=== PATIENT | female | born 1980 | race Two or more races ===

== ENCOUNTER 2024-11-19 05:19 | Emergency (ER) | payer BC, OTHER, SELFPAY ==
--- NOTE | 2024-11-19 | XR_ITS ---
Examination: MRI pelvis with intravenous contrast. MRI pelvis without intravenous contrast. Date and time of exam: November 19, 2024 1540 hrs. Indications: Pelvic pain and distention this week, right ovarian cystic mass left ovarian hypoechoic solid mass on pelvic sonogram today Technique: Multiple axial, sagittal and coronal sections of the pelvis obtained. Transverse images, TR 6020, TE 107. T1 weighted transverse images, TR 582, TE 9.5. T2-weighted sagittal images, TR 4000, TE 105. T2-weighted sagittal images, TR 4000, TE 5. Coronal images, TR 4210, TE 107. Axial and coronal images are obtained post 20 cc intravenous injection, gadolinium. Findings: Uterus 9 x 5 x 5 cm No discrete uterine mass Complex right ovarian cystic mass 3.8 x 3.7 cm Multiple left ovarian cysts, the largest 17 mm complex slightly proteinaceous cyst No pelvic lymphadenopathy No free fluid in the pelvis Impression: No discrete uterine mass Complex right ovarian cystic mass 3.8 x 3.7 cm Left ovarian follicular cysts 17 mm complex probable left ovarian proteinaceous cyst rather than ovarian solid tumor Recommend repeat pelvic sonography with the radiologist in attendance
[2024-11-19 05:19] VITALS: BMI 39.9
[2024-11-19 05:25] VITALS: BP 108/74; PULSE 81; RESP 19; TEMP 36.7; O2SAT 99
--- NOTE | 2024-11-19 05:47 | PD.EDRME ---
Rapid Medical Screening Exam RME Arrival date/time: 11/19/24 05:19 43-year-old female past medical history of recent H. pylori treatment presents emergency department complaining of abdominal pain and bloating since this past October. Chief Complaint: Abdominal Pain Time Seen by Provider: 11/19/24 05:30 Vital signs: Vital Signs Temperature 98.1 F 11/19/24 05:25 Pulse Rate 81 11/19/24 05:25 Respiratory Rate 19 11/19/24 05:25 Blood Pressure 108/74 11/19/24 05:25 Pulse Oximetry (%) 99 11/19/24 05:25 Oxygen Delivery Method Room Air 11/19/24 05:25 Vital signs reviewed by provider: Yes
[2024-11-19] MEDS: LIDOCAINE VISCOUS 2% 15 ML UDC PO ×2 (05:58→14:36)
[2024-11-19] MEDS: MG HYD/AL HYD/SIME (Maalox Reg) SUSP 30 ML UDC PO ×2 (05:58→14:36)
[2024-11-19] MEDS: FAMOTIDINE 20 MG TABLET 40 MG PO (05:58)
[2024-11-19 06:16] LABS: Collection Type, Urine Clean Catch
[2024-11-19 07:01] LABS: Bilirubin,Urine Negative (Negative); Blood,Urine 2+ (Negative); Clarity,Urine Clear (Clear/Hazy); Color,Urine Yellow (Lt Yel-Yel); Culture Indicated,Urine Not Indicated; Glucose, Urine Negative (Negative); Ketones,Urine 1+ (Negative); Leukocyte Esterase,Urine Positive (Negative); Nitrite,Urine Negative (Negative); Protein,Urine Trace (Neg - Trace); RBC,Urine 9 /hpf (0-3); Specific Gravity,Urine 1.036 (1.001-1.035); Squamous Epithelial Cell,Urine 5 /hpf (0-5); Urobilinogen,Urine Negative mg/dL (0.0-1.0); WBC,Urine 2 /hpf (0-5)
[2024-11-19 07:35] LABS: Basophils # (Auto) 0.1 Thou/mm3 (0.0-0.2); Basophils % (Auto) 1 % (0-2.5); Eosinophils # (Auto) 0.3 Thou/mm3 (0.0-0.5); Eosinophils % (Auto) 3 % (0-10); Hematocrit 38.1 % (36.0-46.0); Hemoglobin 12.7 g/dL (12.0-16.0); Immature Granulocytes % (Auto) 0 % (0-0); Immature Granulocytes Auto 0.04 Thou/mm3 (0.00-0.00); Lymphocytes # (Auto) 3.3 Thou/mm3 (1.0-4.8); Lymphocytes % (Auto) 30 % (10-50); Mean Corpuscular HGB Conc 33.3 g/dl (31.0-37.0); Mean Corpuscular Hemoglobin 28.5 pg (25.0-35.0); Mean Corpuscular Volume 85 fL (80-100); Monocytes # (Auto) 0.7 Thou/mm3 (0.0-0.8); Monocytes % (Auto) 7 % (0-12); Neutrophils # (Auto) 6.4 Thou/mm3 (1.8-7.7); Neutrophils % (Auto) 59 % (37-80); Nucleated Red Blood Cell % 0 /100 WBC (0); Platelet Count 295 Thou/mm3 (140-440); RDW Standard Deviation 42.4 fL (36.4-46.3); Red Blood Count 4.46 Miln/mm3 (4.00-5.20); White Blood Count 10.8 Thou/mm3 (3.6-11.0)
[2024-11-19 07:40] LABS: Alanine Aminotransferase 16 U/L (10-49); Albumin, Serum 4.1 gm/dL (3.5-5.0); Albumin/Globulin Ratio 1.4 (1.2-2.2); Alkaline Phosphatase 71 U/L (46-116); Anion Gap 9 (7-16); Aspartate Amino Transferase 18 U/L (0-34); BUN/Creatinine Ratio 20 Ratio (12-20); Bilirubin,Total 0.3 mg/dL (0.3-1.2); Blood Urea Nitrogen 12 mg/dL (9-23); Carbon Dioxide 27.4 mMol/L (20.0-31.0); Chloride 103 mMol/L (98-107); Creatinine (Component) 0.6 mg/dL (0.6-1.3); Estimated Creatinine Clearance 148.4 mL/min (>60); Glucose 116 mg/dL (74-106); Lipase 35 U/L (12-53); Osmolality,Calculated 278 (275-295); Sodium 139 mMol/L (136-145); Total Protein 7.1 gm/dL (5.7-8.2); eGFR > 60 See Note
--- NOTE | 2024-11-19 07:50 | PD.EDABDPN ---
ED Abdominal Pain RME/HPI General Chief Complaint: Abdominal Pain Stated complaint: ABD PAIN Time seen by provider: 11/19/24 05:30 Arrival date/time: 11/19/24 05:19 RME / HPI RME / HPI narrative: 11/19/24 05:19 43-year-old female past medical history of recent H. pylori treatment presents emergency department complaining of abdominal pain and bloating since this past October. Related Data Previous Rx's ?Medication ?Instructions ?Recorded ibuprofen 600 mg tablet 600 mg PO Q6H PRN pain #14 tabs 03/17/19 acetaminophen 300 mg-codeine 30 mg 1 tab PO Q4H PRN pain #20 tabs 10/24/21 tablet ibuprofen 800 mg tablet 800 mg PO TID PRN pain #30 tabs 10/24/21 ondansetron 4 mg disintegrating 4 mg PO Q6H PRN nausea and 10/24/21 tablet vomiting #10 tabs tamsulosin 0.4 mg capsule (Flomax) 0.4 mg PO QDAY #7 caps 10/24/21 ciprofloxacin HCl 500 mg tablet 500 mg PO BID #14 tabs 10/30/21 (Cipro) tamsulosin 0.4 mg capsule (Flomax) 0.4 mg PO QDAY #7 caps 10/30/21 naproxen 500 mg tablet (Naprosyn) 500 mg PO BID PRN pain #30 tabs 11/13/21 Allergies Allergy/AdvReac Type Severity Reaction Status Date / Time No Known Allergies Allergy Verified 11/12/21 22:47 Course Orders Category Date Time Status CBC Stat Lab 11/19/24 07:08 Completed CMP [Comprehensive Metabolic Panel] Stat Lab 11/19/24 07:08 Results HCG,Qualitative Serum Stat Lab 11/19/24 07:08 Results Lipase Stat Lab 11/19/24 07:08 Results Urinalysis, C/S if Indicated Stat Lab 11/19/24 06:00 Completed Famotidine [Pepcid] Med 11/19/24 05:46 Discontinued 40 mg PO X1 ONE Lidocaine 2% Viscous [Xylocaine 2% Viscous] Med 11/19/24 05:46 Discontinued 15 ml PO X1 ONE mg Hyd/Al Hyd/Aristeo Susp [Maalox Susp] Med 11/19/24 05:46 Discontinued 30 ml PO X1 ONE Vital Signs Vital signs: Vital Signs Temperature 98.1 F 11/19/24 05:25 Pulse Rate 81 11/19/24 05:25 Respiratory Rate 19 11/19/24 05:25 Blood Pressure 108/74 11/19/24 05:25 Pulse Oximetry (%) 99 11/19/24 05:25 Oxygen Delivery Method Room Air 11/19/24 05:25 Abdominal Pain MDM Medications / Prescriptions Medication administrations:: Medication Administration History Discontinued Medications Al Hydrox/Mg Hydrox/Simethicone (Mg Hyd/Al Hyd/Aristeo (Maalox Reg) Susp 30 Ml Udc) 30 ml PO X1 ONE Stop: 11/19/24 05:47 Last Admin: 11/19/24 05:58 Dose: 30 ml Documented By: CVL Famotidine (Famotidine 20 Mg Tablet) 40 mg PO X1 ONE Stop: 11/19/24 05:47 Last Admin: 11/19/24 05:58 Dose: 40 mg Documented By: CVL Lidocaine HCl (Lidocaine Viscous 2% 15 Ml Udc) 15 ml PO X1 ONE Stop: 11/19/24 05:47 Last Admin: 11/19/24 05:58 Dose: 15 ml Documented By: CVL Discharge Plan Prescriptions/Referrals Prescriptions/Med Rec: No Action ibuprofen 600 mg tablet 600 mg PO Q6H PRN (Reason: pain) Qty: 14 0RF ibuprofen 800 mg tablet 800 mg PO TID PRN (Reason: pain) Qty: 30 0RF acetaminophen-codeine 300-30 mg tablet 1 tab PO Q4H PRN (Reason: pain) Qty: 20 0RF ondansetron 4 mg tablet,disintegrating 4 mg PO Q6H PRN (Reason: nausea and vomiting) Qty: 10 0RF tamsulosin [Flomax] 0.4 mg capsule 0.4 mg PO QDAY Qty: 7 0RF ciprofloxacin HCl [Cipro] 500 mg tablet 500 mg PO BID Qty: 14 0RF tamsulosin [Flomax] 0.4 mg capsule 0.4 mg PO QDAY Qty: 7 0RF naproxen [Naprosyn] 500 mg tablet 500 mg PO BID PRN (Reason: pain) Qty: 30 0RF Referrals: Dirk Garcia MD [Primary Care Provider] - In 1 week Patient/Caregiver Discharge Instructions Print Language: Polish
--- NOTE | 2024-11-19 07:51 | XR_ITS ---
Examination: CT abdomen and pelvis without contrast. Coronal 3-D reconstructions. Sagittal 2-D reconstructions. Date and time of exam: November 19, 2024 0931 hrs. Indications: Generalized abdominal pain beginning 2 months ago CTDI: vol (mGy): 12.7 DLP: (mGycm): 758 Technique: Axial images of the abdomen have been obtained, 3 mm slice thickness Intravenous contrast material has not been administered. Low dose protocols were performed. One or more of the following dose reduction techniques were used; automated exposure control, adjustment of the mA and/or KV according to patient size, use of iterative reconstruction technique. Findings: No liver or splenic lesions Absent gallbladder No intrahepatic biliary tract dilatation No pancreatic mass or peripancreatic edema Normal adrenal glands No renal or ureteral calculi, no hydronephrosis Abdominal aorta normal size Normal appendix No bowel obstruction No diverticulitis Anteverted uterus Partially cystic partially solid anterior right pelvic mass axial image 188, measuring 4.8 x 4.2 cm Urinary bladder intact Impression: Normal appendix Partially cystic partially solid anterior right pelvic mass 4.8 x 4.2 cm, recommend follow-up transvaginal transabdominal pelvic sonography
[2024-11-19 07:54] LABS: HCG,Qualitative Serum Negative
[2024-11-19 09:58] LABS: HCG Qualitative,Urine Negative
--- NOTE | 2024-11-19 11:14 | XR_ITS ---
Examination: Pelvic ultrasound, transabdominal, complete Technique: Transabdominal ultrasound of the pelvis performed using grayscale imaging Date and time of exam: November 19, 2024 1203 hrs. Indications: Abdominal pelvic pain 2 months, 4.8 cm right pelvic cystic solid mass on CT scan of the pelvis today Findings: Uterus 10.1 x 5.2 x 6.5 cm Endometrial stripe 13 mm No bladder mass or intrauterine gestation Right ovary 5.2 cm arterial flow 3.5 x 2.8 x 3.7 cm cyst with septations Left ovary 4.6 cm arterial flow, 2.1 x 1.0 x 1.4 cm solid hyperechoic mass Impression: Right ovary complex cyst 3.5 x 2.8 x 3.7 cm Left ovarian hyperechoic solid mass 2.1 x 1.0 x 1.4 cm, differential would include endometrioma, early solid left ovarian tumor Recommend MRI pelvis follow-up pre and postcontrast
[2024-11-19 12:45] VITALS: BP 127/87; PULSE 78; RESP 18; TEMP 36.8; O2SAT 99
--- NOTE | 2024-11-19 12:46 | PD.EDRME ---
Rapid Medical Screening Exam RME Arrival date/time: 11/19/24 05:19 11/19/24 05:19 43-year-old female past medical history of recent H. pylori treatment presents emergency department complaining of abdominal pain and bloating since this past October. Chief Complaint: Abdominal Pain Time Seen by Provider: 11/19/24 05:30 Vital signs: Vital Signs Temperature 98.1 F 11/19/24 05:25 Pulse Rate 81 11/19/24 05:25 Respiratory Rate 19 11/19/24 05:25 Blood Pressure 108/74 11/19/24 05:25 Pulse Oximetry (%) 99 11/19/24 05:25 Oxygen Delivery Method Room Air 11/19/24 05:25 RME Narrative: 11/19/24 05:19 43-year-old female past medical history of recent H. pylori treatment presents emergency department complaining of abdominal pain and bloating since this past October.
--- NOTE | 2024-11-19 13:17 | EDNOTE_ITS ---
ED General RME/HPI General Chief complaint: Abdominal Pain Stated complaint: ABD PAIN Time Seen by Provider: 11/19/24 05:30 Arrival date/time: 11/19/24 05:19 CC: Epigastric pain HPI ongoing since October 2024, was diagnosed with H. pylori put on the medications the end of October which she completed with no change in the epigastric pain. Patient states pain is intermittent in nature worse when she goes to bed where she wakes up in the morning with a bloating sensation. Prior to 2024 no complaints similar to this last menstrual cycle was November 06. Patient is awake alert oriented nontoxic-appearing not in any acute distress. Patient cannot get an appoint with her PCP until the end of this month and therefore did not want to wait as the pain continues to be recurrent without worsening. Currently the pain is a 3-4 on a 10 scale. Patient denies vomiting nausea diarrhea or constipation. RME / HPI RME / HPI narrative: 11/19/24 05:19 43-year-old female past medical history of recent H. pylori treatment presents emergency department complaining of abdominal pain and bloating since this past October. Related Data Previous Rx's ?Medication ?Instructions ?Recorded ibuprofen 600 mg tablet 600 mg PO Q6H PRN pain #14 t abs 03/17/19 acetaminophen 300 mg-codeine 30 mg 1 tab PO Q4H PRN pa in #20 tabs 10/24/21 tablet ibuprofen 800 mg tablet 800 mg PO TID PRN pain #30 t abs 10/24/21 ondansetron 4 mg disintegrating 4 mg PO Q6H PRN nausea and 10/24/21 tablet vomiting #10 tabs tamsulosin 0.4 mg capsule (Flomax) 0.4 mg PO QDAY #7 c aps 10/24/21 ciprofloxacin HCl 500 mg tablet 500 mg PO BID #14 tabs 10/30/21 (Cipro) tamsulosin 0.4 mg capsule (Flomax) 0.4 mg PO QDAY #7 c aps 10/30/21 naproxen 500 mg tablet (Naprosyn) 500 mg PO BID PRN pa in #30 tabs 11/13/21 famotidine 20 mg tablet 20 mg PO QDAY #30 tabs 11/19 Allergies Allergy/AdvReac Type Severity Reaction Status Date / Time No Known Allergies Allergy Verified 11/12/21 22:47 Review of Systems Review of Systems Narrative Review of Systems: GEN: No fever, no chills, no weight loss EYES: No discharge, no visual changes, no pain HEENT: No ear pain, no congestion, no sore throat PULM: No shortness of breath, no cough, no congestion CV: No chest pain, no dyspnea on exertion, no palpitations GI: No nausea, no vomiting, no diarrhea, + pain, no constipation : No frequency, no urgency, no dysuria MUSC/SKEL: No joint pain, no back pain SKIN: No rash PSYCH: No hallucinations, no depression HEME/LYMPH: No easy bleeding or bruising tendencies NEURO: No weakness, no headache Past Medical History Past Medical History CARDIAC: Positive Cardiac Disorders; Negative Congestive Heart Failure RESPIRATORY: Negative Chronic Obstructive Pulmonary Disease (COPD) GASTROINTESTINAL: Positive Gastrointestinal Disorders (h pylori) GENITOURINARY: Negative Renal Disease ENDOCRINE: Negative Diabetes Mellitus Type 1 or Diabetes Mellitus Type 2 OTHER HISTORY: Negative Blood Transfusions Surgical History SURGICAL: Positive Abdominal Surgery Social History SMOKING STATUS: Never smoker SUBSTANCE USE: does not use ED Exam Narrative Physical exam: [General: Morbidly obese not in any acute distress Head normocephalic HEENT: Within acceptable limits Neck is supple nontender Chest equal chest rise nontender to palpation Respiratory: Clear to auscultation no wheezes crackles or rubs CV: Rate rhythm is regular no murmurs rubs or clicks Abdomen is distended secondary to body habitus soft, exquisite epigastric tenderness with reflexive guarding no rebound tenderness. No upper quadrant or lower quadrant tenderness with deep palpation. Back: No CVA tenderness no spinous process tenderness from cervical spine thoracic and lumbar spine Skin: Intact no petechiae rash induration ulceration or crepitus Extremities: Moving all extremity against resistance cap refill less than 2 seconds neurosensory intact Neuro: Awake alert oriented x3 Glascow coma 15 no focal deficits] Course Quality Measures none Orders Category Date Time Status Insert IV NOW Care 11/19/24 12:50 Active MRI Screening NOW Care 11/19/24 12:[address] abdomen pelvis wo con Stat Exams 11/19/24 07:51 Completed MR pelvis wo/w con Stat Exams 11/19/24 Completed US pelvic complete Stat Exams 11/19/24 11:14 Completed CBC Stat Lab 11/19/24 07:08 Completed CMP [Comprehensive Metabolic Panel] Stat Lab 11/19/24 07:08 Completed HCG Qualitative,Urine Stat Lab 11/19/24 06:00 Completed HCG,Qualitative Serum Stat Lab 11/19/24 07:08 Completed Lipase Stat Lab 11/19/24 07:08 Completed Urinalysis, C/S if Indicated Stat Lab 11/19/24 06:00 Completed Famotidine [Pepcid] Med 11/19/24 05:46 Discontinued 40 mg PO X1 ONE Lidocaine 2% Viscous [Xylocaine 2% Viscous] Med 11/19/24 05:46 Discontinued 15 ml PO X1 ONE Lidocaine 2% Viscous [Xylocaine 2% Viscous] Med 11/19/24 13:16 Discontinued 15 ml PO X1 ONE mg Hyd/Al Hyd/Aristeo Susp [Maalox Susp] Med 11/19/24 05:46 Discontinued 30 ml PO X1 ONE mg Hyd/Al Hyd/Aristeo Susp [Maalox Susp] Med 11/19/24 13:16 Discontinued 30 ml PO X1 ONE Vital Signs Vital signs: Vital Signs Temperature 98.1 F 11/19/24 05:25 Pulse Rate 81 11/19/24 05:25 Respiratory Rate 19 11/19/24 05:25 Blood Pressure 108/74 11/19/24 05:25 Pulse Oximetry (%) 99 11/19/24 05:25 Oxygen Delivery Method Room Air 11/19/24 05:25 [facility] Patient data External records reviewed:: [facility] previous records Clinical information provided by:: patient Social determinants that could affect healthcare access:: none Patient has the following chronic illnesses:: Morbid obesity How is presenting disease/condition affected by chronic disease/condition?: u neffected by Evaluation data The following diagnostics were reviewed and interpreted by me:: lab results and radiology exam(s) Lab and/or radiology exams considered but not ordered:: CBC shows no leukocytosis anemia thrombocytopenia CMP shows no significant electrolyte imbalances other than glucose of 116 no transaminitis or T. bili elevation or renal impairment. Urine shows leukocyte Estrace positive with 9 RBCs 2 WBCs and no bacteria. Lipase is within acceptable limits is negative CT shows a solid right pelvic mass as interpreted by radiology. Ultrasound shows a right complex ovarian cyst and a left solid mass. MRI shows a 17 mm complex probable left ovarian proteinaceous cyst rather than a solid ovoid. Interpretation Summary: Patient's symptoms are typical of a reflux or gastritis, the incidental finding of the mass will be followed through. Patient is made aware that these 2 may not be linked. But is willing to do the MRI for further evaluation of the mass in the pelvis. Reassessment of the patient at 1541, the patient has had significant relief with lidocaine and Maalox combination, I feel the patient has primary complaint for admission to the emergency room is a reflux issue, the incidental finding of the mass turns out to be a most probable ovarian cyst on the left side in addition to the 1 that is already known on the right side. Patient is advised to follow- up with VETERINARY MANAGER for further evaluation for if there is any lower abdominal pain. Patient will be started on famotidine and discharged on the bland diet. Medications Medications considered but not ordered:: None Medication administrations:: Medication Administration History Discontinued Medications Al Hydrox/Mg Hydrox/Simethicone (Mg Hyd/Al Hyd/Aristeo (Maalox Reg) Susp 30 Ml Udc) 30 ml PO X1 ONE Stop: 11/19/24 05:47 Last Admin: 11/19/24 05:58 Dose: 30 ml Documented By: CVL Al Hydrox/Mg Hydrox/Simethicone (Mg Hyd/Al Hyd/Aristeo (Maalox Reg) Susp 30 Ml Udc) 30 ml PO X1 ONE Stop: 11/19/24 13:17 Last Admin: 11/19/24 14:36 Dose: 30 ml Documented By: DO Famotidine (Famotidine 20 Mg Tablet) 40 mg PO X1 ONE Stop: 11/19/24 05:47 Last Admin: 11/19/24 05:58 Dose: 40 mg Documented By: CVL Lidocaine HCl (Lidocaine Viscous 2% 15 Ml Udc) 15 ml PO X1 ONE Stop: 11/19/24 05:47 Last Admin: 11/19/24 05:58 Dose: 15 ml Documented By: CVL Lidocaine HCl (Lidocaine Viscous 2% 15 Ml Udc) 15 ml PO X1 ONE Stop: 11/19/24 13:17 Last Admin: 11/19/24 14:36 Dose: 15 ml Documented By: DO None Consultations Consultation(s) initiated? (list below): No Diagnosis Differential Diagnosis ED Complaint MDM: Gastritis enteritis ovarian cyst Most likely diagnosis given after review of the tests above:: Ovarian cyst, reflux Admission Indicated Admission indicated?: not indicated Explain why admission is indicated or not indicated:: Stable for outpatient follow-up Admission Request Was there a request for admission?: No Disposition Plan Disposition Plan: Discharge Discharge Attestation Discharge Attestation: The patient and all family members were given an opportunity to ask questions and understood the discharge instructions. Discharge instructions specifically effects, indications for sooner follow up or return to the emergency department, and the expected course of current diagnosis. Patient condition: Stable Medical Decision Making Differential Diagnosis Differential Diagnosis: Gastritis enteritis ovarian cyst Lab Data 11/19/24 07:08 11/19/24 07:08 Labs: Lab Results 11/19/24 11/19/24 Range/Units 06:00 07:08 WBC 10.8 (3.6-11.0) Thou/mm3 RBC 4.46 (4.00-5.20) Miln/mm3 Hgb 12.7 (12.0-16.0) g/dL Hct 38.1 (36.0-46.0) % MCV 85 (80-100) fL MCH 28.5 (25.0-35.0) pg MCHC 33.3 (31.0-37.0) g/dl RDW Std Deviation 42.4 (36.4-46.3) fL Plt Count 295 (140-440) Thou/mm3 Neut % (Auto) 59 (37-80) % Lymph % (Auto) 30 (10-50) % Walker % (Auto) 7 (0-12) % Eos % (Auto) 3 (0-10) % Baso % (Auto) 1 (0-2.5) % Neut # (Auto) 6.4 (1.8-7.7) Thou/mm3 Lymph # (Auto) 3.3 (1.0-4.8) Thou/mm3 Walker # (Auto) 0.7 (0.0-0.8) Thou/mm3 Eos # (Auto) 0.3 (0.0-0.5) Thou/mm3 Baso # (Auto) 0.1 (0.0-0.2) Thou/mm3 Immature Gran # (Auto) 0.04 H (0.00-0.00) Thou/mm3 Absolute Nucleated RBC 0.00 (0.00-0.00) Thou/mm3 Immature Gran % 0 (0-0) % Nucleated RBC % 0 (0) /100 WBC Sodium 139 (136-145) mMol/L Potassium 4.0 (3.4-5.1) mMol/L Chloride 103 (98-107) mMol/L Carbon Dioxide 27.4 (20.0-31.0) mMol/L Anion Gap 9 (7-16) BUN 12 (9-23) mg/dL Creatinine 0.6 (0.6-1.3) mg/dL Estim Creat Clear Calc 148.4 (>60) mL/min eGFR > 60 (60 - ) See Note BUN/Creatinine Ratio 20 (12-20) Ratio Glucose 116 H (74-106) mg/dL Calculated Osmolality 278 (275-295) Calcium 9.0 (8.3-10.6) mg/dL Corrected Calcium 9.0 (8.5-10.1) mg/dL Total Bilirubin 0.3 (0.3-1.2) mg/dL AST 18 (0-34) U/L ALT 16 (10-49) U/L Alkaline Phosphatase 71 (46-116) U/L Total Protein 7.1 (5.7-8.2) gm/dL Albumin 4.1 (3.5-5.0) gm/dL Globulin 3.0 (2.3-3.5) gm/dL Albumin/Globulin Ratio 1.4 (1.2-2.2) Lipase 35 (12-53) U/L HCG, Qual Negative Ur Collection Type Clean Catch Urine Color Yellow (Lt Yel-Yel) Urine Clarity Clear (Clear/Hazy) Urine pH 6.0 (5.0-7.0) Ur Specific [place] 1.036 H (1.001-1.035) Urine Protein Trace (Neg - Trace) Urine Glucose (UA) Negative (Negative) Urine Ketones 1+ A (Negative) Urine Blood 2+ A (Negative) Urine Nitrite Negative (Negative) Urine Bilirubin Negative (Negative) Urine Urobilinogen (Auto) Negative (0.0-1.0) mg/dL Ur Leukocyte Esterase Positive (Negative) Urine RBC 9 H (0-3) /hpf Urine WBC 2 (0-5) /hpf Ur Squamous Epith Cells 5 (0-5) /hpf Urine Bacteria None (None) Ur Culture Indicated? Not Indicated Urine HCG, Qual Negative Discharge Plan Plan Patient Disposition: HOME (Self Care) Patient condition on transfer: Stable Prescriptions/Referrals [facility] mg PO QDAY Qty: 30 1RF No Action ibuprofen 600 mg tablet 600 mg PO Q6H PRN (Reason: pain) Qty: 14 0RF ibuprofen 800 mg tablet 800 mg PO TID PRN (Reason: pain) Qty: 30 0RF acetaminophen-codeine 300-30 mg tablet 1 tab PO Q4H PRN (Reason: pain) Qty: 20 0RF ondansetron 4 mg tablet,disintegrating 4 mg PO Q6H PRN (Reason: nausea and vomiting) Qty: 10 0RF tamsulosin [Flomax] 0.4 mg capsule 0.4 mg PO QDAY Qty: 7 0RF ciprofloxacin HCl [Cipro] 500 mg tablet 500 mg PO BID Qty: 14 0RF tamsulosin [Flomax] 0.4 mg capsule 0.4 mg PO QDAY Qty: 7 0RF naproxen [Naprosyn] 500 mg tablet 500 mg PO BID PRN (Reason: pain) Qty: 30 0RF Referrals: Dirk Garcia MD [Primary Care Provider] - In 1 week Problem List Clinical Impression: Acid reflux, Ovarian cyst Patient/Caregiver Discharge Instructions Other Activity Instructions:: Take the medication as provided for the next 60 days, avoid greasy spicy fatty foods. Please follow-up with your VETERINARY MANAGER regarding the ovarian cyst if there is worsening low abdominal pain return to the emergency room for reevaluation. Education Materials: Ovarian Cysts, GERD Dc Print Language: Estonian Stand Alone Forms: Lesia Award Info., Patient Portal Info Letter, Work/School Release PA/[employer] Supervising Physician PA/[employer] Supervising Physician: Gopi Casiano ENP
--- NOTE | 2024-11-19 13:40 | PC.NURSE ---
PT TO MRI
[2024-11-19 14:19] VITALS: BP 109/72; PULSE 79; RESP 16; TEMP 36.9; O2SAT 97
== END 2024-11-19 16:10 | disposition home or self-care (01) ==
PROVIDERS: Nurse Practitioner Primary Care; Emergency Provider Emergency Medicine; PCP Family Medicine
DX: K21.9 Gastro-esophageal reflux disease without esophagitis (principal); N83.201 Unspecified ovarian cyst, right side; R19.09 Other intra-abdominal and pelvic swelling, mass and lump
CPT/HCPCS: 36415; 72197; 74176; 76856; 80053; 81001; 81025; 83690; 84703; 85025; 99285; A9579; J3490; A9270

== ENCOUNTER 2025-02-19 13:12 | Emergency (ER) | payer BC, OTHER, SELFPAY ==
[2025-02-19 13:16] VITALS: BP 119/80; PULSE 84; RESP 18; TEMP 37.2; O2SAT 97
--- NOTE | 2025-02-19 14:08 | EKG_ITS ---
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
[2025-02-19 14:13] VITALS: BMI 39.9
--- NOTE | 2025-02-19 14:28 | XR_ITS ---
Examination: AP chest single view Technique : AP portable upright chest single view Date and time: February 19, 2025 1435 hours INDICATIONS: Left-sided chest pain today. FINDINGS: Normal heart size No pneumothorax. No pneumonia or pulmonary edema. Osseous structures appear intact IMPRESSION: No active disease
--- NOTE | 2025-02-19 14:28 | EDNOTE_ITS ---
ED General RME/HPI General Chief complaint: Chest Pain Stated complaint: CHEST PAIN Time Seen by Provider: 02/19/25 13:14 Arrival date/time: 02/19/25 13:12 CC: Left anterior chest pain and pressure HPI onset at8 AM has diminished significantly so now it is only in the sternal region. Prior history of similar episodes when worked up at [place] patient never followed up with cardiology, patient is awake alert oriented nontoxic-appearing not in any acute distress. Patient denies radiation into the neck shoulder back face or arm. Denies nausea or vomiting. Related Data Previous Rx's ?Medication ?Instructions ?Recorded ibuprofen 600 mg tablet 600 mg PO Q6H PRN pain #14 t abs 03/17/19 acetaminophen 300 mg-codeine 30 mg 1 tab PO Q4H PRN pa in #20 tabs 10/24/21 tablet ibuprofen 800 mg tablet 800 mg PO TID PRN pain #30 t abs 10/24/21 ondansetron 4 mg disintegrating 4 mg PO Q6H PRN nausea and 10/24/21 tablet vomiting #10 tabs tamsulosin 0.4 mg capsule (Flomax) 0.4 mg PO QDAY #7 c aps 10/24/21 ciprofloxacin HCl 500 mg tablet 500 mg PO BID #14 tabs 10/30/21 (Cipro) tamsulosin 0.4 mg capsule (Flomax) 0.4 mg PO QDAY #7 c aps 10/30/21 naproxen 500 mg tablet (Naprosyn) 500 mg PO BID PRN pa in #30 tabs 11/13/21 famotidine 20 mg tablet 20 mg PO QDAY #30 tabs 11/19 Allergies Allergy/AdvReac Type Severity Reaction Status Date / Time No Known Allergies Allergy Verified 11/12/21 22:47 Review of Systems Review of Systems Narrative Review of Systems: GEN: No fever, no chills, no weight loss EYES: No discharge, no visual changes, no pain HEENT: No ear pain, no congestion, no sore throat PULM: No shortness of breath, no cough, no congestion CV: + chest pain, no dyspnea on exertion, no palpitations GI: No nausea, no vomiting, no diarrhea, no pain, no constipation : No frequency, no urgency, no dysuria MUSC/SKEL: No joint pain, no back pain SKIN: No rash PSYCH: No hallucinations, no depression HEME/LYMPH: No easy bleeding or bruising tendencies NEURO: No weakness, no headache Past Medical History Past Medical History CARDIAC: Positive Cardiac Disorders; Negative Congestive Heart Failure RESPIRATORY: Negative Chronic Obstructive Pulmonary Disease (COPD) GASTROINTESTINAL: Positive Gastrointestinal Disorders GENITOURINARY: Negative Renal Disease ENDOCRINE: Negative Diabetes Mellitus Type 1 or Diabetes Mellitus Type 2 OTHER HISTORY: Negative Blood Transfusions Surgical History SURGICAL: Positive Abdominal Surgery Social History SMOKING STATUS: Never smoker SUBSTANCE USE: does not use ED Exam Narrative Physical exam: [General: Obese not in any acute distress Head normocephalic HEENT: Within acceptable limits Neck is supple nontender Chest equal chest rise nontender to palpation Respiratory: Clear to auscultation no wheezes crackles or rubs CV: Rate rhythm is regular no murmurs rubs or clicks Abdomen is distended secondary to body habitus soft nontender no masses positive bowel sounds all 4 quadrants Back: No CVA tenderness no spinous process tenderness from cervical spine thoracic and lumbar spine Skin: Intact no petechiae rash induration ulceration or crepitus Extremities: Moving all extremity against resistance cap refill less than 2 seconds neurosensory intact Neuro: Awake alert oriented x3 Glascow coma 15 no focal deficits] Course Quality Measures none Orders Category Date Time Status EKG (ED ONLY) *Do not use* NOW Care 02/19/25 14:08 Completed EKG (ED Only) Stat Exams 02/19/25 14:08 Ordered EKG (ED Only) Urgent Exams 02/19/25 14:08 Draft XR chest 1V Stat Exams 02/19/25 14:28 Completed B-Type Natriuretic Peptide Stat Lab 02/19/25 14:32 Completed CBC Stat Lab 02/19/25 14:32 Completed Comprehensive Metabolic Panel Stat Lab 02/19/25 14:32 Completed Drug Screen,Urine Stat Lab 02/19/25 14:28 Ordered LDH (Lactate Dehydrogenase) Stat Lab 02/19/25 14:32 Completed Magnesium Stat Lab 02/19/25 14:32 Completed Partial Thromboplastin Time Stat Lab 02/19/25 14:32 Completed Prothrombin Time with INR Stat Lab 02/19/25 14:32 Completed Troponin I Stat Lab 02/19/25 14:32 Completed Urinalysis Stat Lab 02/19/25 14:28 Ordered Vital Signs Vital signs: Vital Signs Temperature 98.9 F 02/19/25 13:16 Pulse Rate 84 02/19/25 13:16 Respiratory Rate 18 02/19/25 13:16 Blood Pressure 119/80 02/19/25 13:16 Pulse Oximetry (%) 97 02/19/25 13:16 Oxygen Delivery Method Room Air 02/19/25 13:16 Discharge Plan Plan Patient Disposition: HOME (Self Care) Patient condition on transfer: Stable Prescriptions/Referrals Prescriptions/Med Rec: No Action ibuprofen 600 mg tablet 600 mg PO Q6H PRN (Reason: pain) Qty: 14 0RF ibuprofen 800 mg tablet 800 mg PO TID PRN (Reason: pain) Qty: 30 0RF acetaminophen-codeine 300-30 mg tablet 1 tab PO Q4H PRN (Reason: pain) Qty: 20 0RF ondansetron 4 mg tablet,disintegrating 4 mg PO Q6H PRN (Reason: nausea and vomiting) Qty: 10 0RF tamsulosin [Flomax] 0.4 mg capsule 0.4 mg PO QDAY Qty: 7 0RF ciprofloxacin HCl [Cipro] 500 mg tablet 500 mg PO BID Qty: 14 0RF tamsulosin [Flomax] 0.4 mg capsule 0.4 mg PO QDAY Qty: 7 0RF naproxen [Naprosyn] 500 mg tablet 500 mg PO BID PRN (Reason: pain) Qty: 30 0RF famotidine 20 mg tablet 20 mg PO QDAY Qty: 30 1RF Referrals: Dirk Garcia MD [Primary Care Provider] - In 1 week Problem List Clinical Impression: Chest pain Patient/Caregiver Discharge Instructions Education Materials: ED Chest Pain, Noncardiac Print Language: Divehi Stand Alone Forms: Lesia Award Info., Work/School Release, Patient Portal Info Letter PA/GLAZIER SUPERVISOR Supervising Physician PA/GLAZIER SUPERVISOR Supervising Physician: Gopi Casiano Enp [facility] Clinical Information Provided by patient and EMS Medical Records Reviewed [facility] and EMS Meds/Rx Considered, not Ordered None Labs/Rad/Tests considered, not Ordered None Chronic Illness/Social Conditions which may negatively complicate care or outcome(s)-explain: None or not applicable EKG Interpretation EKG #1: Date/time of EK02/19/25 2:30 pm EKG performed at 1415 shows ventricular rate of 80 DC interval 173 QRS of 85 QTc of 408 this is sinus rhythm. Minimal baseline artifact. Lab Interpretation Labs: interpreted by [facility] Lab(s) interpretation(s): CBC shows a mild leukocytosis eleven 2.2 and anemia of 11.9 and 34.8 respectively no thrombocytopenia Coags within acceptable limits CMP shows no significant electrolyte imbalances or renal impairment transaminitis or T. bili elevation Diagnosis Differential diagnosis: ACS CT pneumonia
--- NOTE | 2025-02-19 14:55 | PC.NURSE ---
PT STATES THAT HER PAIN IS BETTER, SHE FEELS TIRED LIKE SHE RAN A MARATHON. VSS ON TELE, CALL [facility] IN [place]. PT AWARE WE NEED URINE SAMPLE. WILL CONT W/POC.
[2025-02-19 15:03] LABS: Basophils % (Auto) 0 % (0-2.5); Eosinophils # (Auto) 0.2 Thou/mm3 (0.0-0.5); Eosinophils % (Auto) 2 % (0-10); Hematocrit 34.8 % (36.0-46.0); Hemoglobin 11.9 g/dL (12.0-16.0); Immature Granulocytes % (Auto) 0 % (0-0); Immature Granulocytes Auto 0.03 Thou/mm3 (0.00-0.00); Lymphocytes % (Auto) 27 % (10-50); Mean Corpuscular HGB Conc 34.2 g/dl (31.0-37.0); Mean Corpuscular Hemoglobin 28.5 pg (25.0-35.0); Mean Corpuscular Volume 84 fL (80-100); Monocytes # (Auto) 0.7 Thou/mm3 (0.0-0.8); Monocytes % (Auto) 6 % (0-12); Neutrophils # (Auto) 7.3 Thou/mm3 (1.8-7.7); Neutrophils % (Auto) 65 % (37-80); Nucleated Red Blood Cell % 0 /100 WBC (0); Platelet Count 291 Thou/mm3 (140-440); RDW Standard Deviation 40.9 fL (36.4-46.3); Red Blood Count 4.17 Miln/mm3 (4.00-5.20); White Blood Count 11.2 Thou/mm3 (3.6-11.0)
[2025-02-19 15:20] LABS: Partial Thromboplastin Time 27.5 Seconds (22.0-36.0); Prothrombin Time 10.9 Seconds (9.0-12.2)
[2025-02-19 15:25] LABS: B-Type Natriuretic Peptide < 20 pg/mL (0-100)
[2025-02-19 15:28] LABS: Alanine Aminotransferase 14 U/L (10-49); Albumin, Serum 4.2 gm/dL (3.5-5.0); Albumin/Globulin Ratio 1.4 (1.2-2.2); Alkaline Phosphatase 77 U/L (46-116); Anion Gap 9 (7-16); Aspartate Amino Transferase 18 U/L (0-34); BUN/Creatinine Ratio 18 Ratio (12-20); Bilirubin,Total 0.3 mg/dL (0.3-1.2); Blood Urea Nitrogen 11 mg/dL (9-23); Calcium 8.6 mg/dL (8.3-10.6); Calcium (Corrected) 8.6 mg/dL (8.5-10.1); Carbon Dioxide 26.6 mMol/L (20.0-31.0); Chloride 104 mMol/L (98-107); Creatinine (Component) 0.6 mg/dL (0.6-1.3); Estimated Creatinine Clearance 146.9 mL/min (>60); Glucose 102 mg/dL (74-106); LDH (Lactate Dehydrogenase) 167 U/L (120-246); Magnesium 1.6 mg/dL (1.6-2.6); Osmolality,Calculated 278 (275-295); Potassium 3.6 mMol/L (3.4-5.1); Sodium 140 mMol/L (136-145); Total Protein 7.2 gm/dL (5.7-8.2); Troponin I < 0.002 ng/mL (0.0-0.045); eGFR > 60 See Note
[2025-02-19 15:34] VITALS: BP 125/75; PULSE 74; RESP 15; TEMP 36.9; O2SAT 98
[2025-02-19 16:49] LABS: Collection Type, Urine Clean Catch
[2025-02-19 17:02] LABS: Amphetamine/Methamp Scrn,U Negative (Negative); Barbiturate Screen,Urine Negative (Negative); Benzodiazepines Screen,Urine Negative (Negative); Benzoylecgonine Screen, Ur Negative (Negative); Fentanyl Screen,Urine Negative (Negative); Opiate Screen,Urine Negative (Negative); THC Screen,Urine Negative (Negative)
[2025-02-19 17:17] LABS: Bilirubin,Urine Negative (Negative); Blood,Urine 3+ (Negative); Clarity,Urine Clear (Clear/Hazy); Color,Urine Lt-Yellow (Lt Yel-Yel); Glucose, Urine Negative (Negative); Ketones,Urine Negative (Negative); Leukocyte Esterase,Urine Negative (Negative); Nitrite,Urine Negative (Negative); PH,Urine 5.5 (5.0-7.0); Protein,Urine Negative (Neg - Trace); RBC,Urine 1118 /hpf (0-3); Specific Gravity,Urine 1.023 (1.001-1.035); Squamous Epithelial Cell,Urine 1 /hpf (0-5); Urobilinogen,Urine Negative mg/dL (0.0-1.0); WBC,Urine 5 /hpf (0-5)
[2025-02-19 17:53] VITALS: BP 142/86; PULSE 76; RESP 16; TEMP 36.6; O2SAT 100
== END 2025-02-19 17:55 | disposition home or self-care (01) ==
PROVIDERS: Registered Nurse General Practice; Emergency Provider Emergency Medicine; PCP Family Medicine
DX: R07.89 Other chest pain (principal)
CPT/HCPCS: 36415; 71045; 80053; 80307; 81001; 83615; 83735; 83880; 84484; 85025; 85610; 85730; 93005; 99283